=== PATIENT | female | born 1975 | race African-American/Black ===

== ENCOUNTER 2019-07-19 18:27 | Emergency (ER) | payer MEDICAID ==
[~2019-07-19 18:27] MED LIST: TRAM50TA94
== END 2019-07-19 19:43 | disposition left against medical advice (07) ==
LOC: ER 18:27
DX: Z53.21 Procedure and treatment not carried out due to patient leaving prior to being seen by health care provider (principal)

== ENCOUNTER 2019-12-22 14:58 | Emergency (ER) | payer MEDICAID ==
[~2019-12-22] VITALS: Ht 167.6 cm; Wt 132.0 kg
[2019-12-22 15:20] VITALS: BP 134/78
== END 2019-12-22 17:00 | disposition left against medical advice (07) ==
LOC: ER 14:58
DX: Z53.21 Procedure and treatment not carried out due to patient leaving prior to being seen by health care provider (principal); I10 Essential (primary) hypertension; F17.200 Nicotine dependence, unspecified, uncomplicated

== ENCOUNTER 2022-02-14 19:19 | Emergency (ER) | payer MEDICAID ==
[~2022-02-14] VITALS: Ht 167.6 cm; Wt 150.0 kg
[~2022-02-14 19:19] MED LIST changes: +ASPI-1406 PO; +COR12 PO; +FOLI-43 PO; +FURO40TA5 PO; +LOSA25TA3 PO; +SPIR25TA PO
[2022-02-14 19:30] VITALS: BP 176/95
== END 2022-02-14 22:10 | disposition left against medical advice (07) ==
LOC: ER 19:19
DX: Z53.21 Procedure and treatment not carried out due to patient leaving prior to being seen by health care provider (principal); R07.9 Chest pain, unspecified; I11.0 Hypertensive heart disease with heart failure; I50.9 Heart failure, unspecified; E78.00 Pure hypercholesterolemia, unspecified; Z88.0 Allergy status to penicillin; Z88.6 Allergy status to analgesic agent; Z88.8 Allergy status to other drugs, medicaments and biological substances; Z90.49 Acquired absence of other specified parts of digestive tract; Z91.014 Allergy to mammalian meats; Z98.890 Other specified postprocedural states
CPT/HCPCS: 93005; 99283